=== PATIENT | female | born 1995 | race Two or more races ===

== ENCOUNTER 2017-06-21 00:05 | Emergency (ER) | payer OTHER ==
--- NOTE | 2017-06-21 00:09 | EDPHY ---
H & P Time Seen by Provider: 06/21/17 00:50 HPI/ROS: HPI: This is a 21-year-old male who presents Chief Complaint: Nausea, shakiness Location: body Quality: Nausea, shakiness Duration: prior to arrival Signs and Symptoms: no fever, no nausea, no vomiting, no hematemesis, no blood in stool, no abdominal bloating, no diarrhea, no back pain, no urinary symptoms , no testicular/groin pain, no indigestion, no chest pain, no shortness of breath Timing: Acute Severity: moderate Context: Patient was having urinary frequency burning with urination 3 days ago. Went to the urgent care yesterday; give a urine sample; diagnosed with urinary tract infection and started on Nitrofurantoin. She started taking medications yesterday evening and has taken a total of 3 tablets. Last 1 occurred at around 8:00 p.m. within 3 hr, she started to feel nauseous and shaky she believes is related to her antibiotic that she is taking. She reports that she no longer has dysuria or urinary frequency. She denies abdominal pain/vomiting. She does have some lower back pain. No history of kidney stones/pyelonephritis. She denies any vaginal bleeding/discharge. She takes oral control pills and last menstrual period was 3 months ago. She denies any fever/dizziness/chest pain/shortness of breath/syncope. Modifying Factors: Macrobid Comment: ROS: see HPI Constitutional: No fever, no chills, no weight loss Eyes: No blurred vision Respiratory: No shortness of breath, no cough Cardiovascular: No chest pain, no palpitations Gastrointestinal: No nausea, no vomiting, no diarrhea, no hematemesis, no blood in stool Genitourinary: No dysuria, no blood in urine Extremities: No myalgias, no edema Neurologic: No weakness, no numbness Skin: No rashes, no petechiae Hematologic: No bruising, no bleeding MEDICAL/SURGICAL/SOCIAL HISTORY: Medical history: Generally healthy. Does not take any regular medications. Surgical history: Denies Social history: Student. CONSTITUTIONAL: Extremely well-appearing, young adult white female, awake and alert, no obvious distress HEENT: Atraumatic and normocephalic, PERRL, EOMI. Tympanic membranes clear. Oropharynx clear, no exudate and moist pink mucosa. Airway patent. No lymphadenopathy. No meningismus. Cardiovascular: Normal S1/S2, regular rate, regular rhythm, without murmur rub or gallop. PULMONARY/CHEST: Symmetrical and nontender. Clear to auscultation bilaterally. Good air movement. No accessory muscle usage. ABDOMEN: Soft, nondistended, nontender, no rebound, no guarding, no peritoneal signs, no masses or organomegaly. No CVAT. EXTREMITIES: 2/2 pulses, strength 5/5, no deformities, no clubbing, no cyanosis or edema. NEUROLOGICAL: no focal neuro deficits. GCS 15. SKIN: Warm and dry, no erythema. no rash. Good capillary refill. Source: Patient Exam Limitations: No limitations Constitutional: Initial Vital Signs Temperature (C) 36.8 C 06/21/17 00:11 Heart Rate 92 06/21/17 00:11 Respiratory Rate 18 06/21/17 00:11 Blood Pressure 124/78 H 06/21/17 00:11 O2 Sat (%) 97 06/21/17 00:11 O2 Delivery Mode Room Air Allergies/Adverse Reactions: No Known Allergies Allergy (Unverified 06/21/17 00:14) Home Medications: Medication Instructions Recorded Bcp 06/21/17 Cefuroxime Axetil [Ceftin (*)] 250 mg PO BID #12 tab 06/21/17 Macrobid 06/21/17 Medical Decision Making ED Course/Re-evaluation: Labs, IV fluids, IV medications ordered Signs reviewed upon arrival and unremarkable. Given 1 L normal saline, IV Zofran Labs unremarkable will discontinue Macrobid and give Ceftin. This patient was seen under the supervision of my secondary supervising physician. I evaluated care for this patient independently. Differential Diagnosis: Differential diagnosis includes but is not related to dehydration, urinary tract infection, electrolyte imbalance, orthostatic hypotension, blood loss. - Data Points Laboratory Results: Laboratory Results 06/21/17 01:14 06/21/17 01:14 06/21/17 06/21/17 06/21/17 01:14 01:14 01:14 WBC 8.77 10^3/uL 10^3/uL (3.80-9.50) RBC 4.25 10^6/uL 10^6/uL (4.18-5.33) Hgb 13.8 g/dL g/dL (12.6-16.3) Hct 38.7 % % (38.0-47.0) MCV 91.1 fL fL (81.5-99.8) MCH 32.5 pg pg (27.9-34.1) MCHC 35.7 g/dL g/dL (32.4-36.7) RDW 11.8 % % (11.5-15.2) Plt Count 168 10^3/uL 10^3/uL (150-400) MPV 10.4 fL fL (8.7-11.7) Neut % (Auto) 63.6 % % (39.3-74.2) Lymph % (Auto) 27.9 % % (15.0-45.0) Barry % (Auto) 5.5 % % (4.5-13.0) Eos % (Auto) 2.2 % % (0.6-7.6) Baso % (Auto) 0.5 % % (0.3-1.7) Nucleat RBC Rel Count 0.0 % % (0.0-0.2) Absolute Neuts (auto) 5.58 10^3/uL 10^3/uL (1.70-6.50) Absolute Lymphs (auto) 2.45 10^3/uL 10^3/uL (1.00-3.00) Absolute Monos (auto) 0.48 10^3/uL 10^3/uL (0.30-0.80) Absolute Eos (auto) 0.19 10^3/uL 10^3/uL (0.03-0.40) Absolute Basos (auto) 0.04 10^3/uL 10^3/uL (0.02-0.10) Absolute Nucleated RBC 0.00 10^3/uL 10^3/uL (0-0.01) Immature Gran % 0.3 % % (0.0-1.1) Immature Gran # 0.03 10^3/uL 10^3/uL (0.00-0.10) Sodium 143 mEq/L mEq/L (135-145) Potassium 3.5 mEq/L mEq/L (3.5-5.2) Chloride 106 mEq/L mEq/L (97-110) Carbon Dioxide 23 mEq/l mEq/l (22-31) Anion Gap 14 mEq/L mEq/L (8-16) BUN 10 mg/dL mg/dL (7-23) Creatinine 0.7 mg/dL mg/dL (0.6-1.0) Estimated GFR > 60 Glucose 90 mg/dL mg/dL (70-100) Calcium 9.7 mg/dL mg/dL (8.5-10.4) Beta HCG, Qual NEGATIVE Medications Given: Discontinued Medications Sodium Chloride (Ns) 1,000 mls @ 0 mls/hr IV ONCE ONE; Wide Open PRN Reason: Protocol Stop: 06/21/17 00:50 Last Admin: 06/21/17 01:09 Dose: 1,000 mls Ondansetron HCl (Zofran) 4 mg IVP EDNOW ONE Stop: 06/21/17 00:50 Last Admin: 06/21/17 01:09 Dose: 4 mg Departure - Departure Disposition: Home, Routine, Self-Care Clinical Impression: Urinary tract infection Qualifiers: Urinary tract infection type: acute cystitis Hematuria presence: without hematuria Qualified Code(s): N30.00 - Acute cystitis without hematuria Medication side effects present Qualifiers: Encounter type: initial encounter Qualified Code(s): T50.905A - Adverse effect of unspecified drugs, medicaments and biological substances, initial encounter Condition: Good Instructions: Urinary Tract Infection in Women (ED), Pelvic Rest (ED) Additional Instructions: Please take Ceftin as directed and stop taking Nitrofurantoin. Drink plenty of fluids and urinate frequently. Please observe pelvic rest until medication is complete. Referrals: KIM CRUZ [Other] - As per Instructions Prescriptions: Cefuroxime Axetil [Ceftin (*)] 250 mg PO BID #12 tab
[2017-06-21 00:14] VITALS: TEMP 98.2
[2017-06-21] MEDS ORDERED: ONDANSETRON 4 MG/2 ML VIAL IVP ONE (00:49)
[2017-06-21] MEDS ORDERED: NS 1,000 ML IV ONE (00:49)
[2017-06-21 01:21] LABS: PLATELET COUNT 168 10^3/uL (150-400)
[2017-06-21 02:17] VITALS: BP 122/74; PULSE 65; RESP 14; O2SAT 95
== END 2017-06-21 02:17 | disposition home or self-care (01) ==
DX: N30.00 Acute cystitis without hematuria (principal); T37.8X5A Adverse effect of other specified systemic anti-infectives and antiparasitics, initial encounter; E86.9 Volume depletion, unspecified
CPT/HCPCS: 96374; J2405